=== PATIENT | male | born 1960 | race Caucasian/White ===

== ENCOUNTER 2025-03-24 00:15 | Inpatient (IN) | payer OTHER ==
[~2025-03-24] VITALS: Ht 170.2 cm; Wt 63.8 kg
[2025-03-24 02:04] LABS: PLATELET COUNT (AUTO) 245 K/uL (150-450); RED BLOOD CELL COUNT(AUTO) 4.52 MIL/uL (4.50-5.90); RED CELL DISTRIBUTION WIDTH 13.4 % (11.5-14.5); WHITE BLOOD COUNT (AUTO) 7.6 K/uL (4.5-11.0)
[2025-03-24 02:14] LABS: CALCIUM, TOTAL 9.5 mg/dL (8.8-10.5); CREATININE 0.80 mg/dL (0.60-1.30); GLOMERULAR FILTR. RATE CALC > 60 mL/min (>60); GLUCOSE,RANDOM 103 mg/dL (70-110); SODIUM SERUM 141 mmol/L (136-145); UREA NITROGEN, BLOOD 12 mg/dL (7-18)
[2025-03-24 02:43] LABS: LACTIC ACID 0.8 mmol/L (0.4-2.0)
[2025-03-24] MEDS: VANCOMYCIN 1GM/WATER(PEG/NADA) 200 ML IV ONE (03:23)
[2025-03-24] MEDS: SODIUM CHLORIDE 0.9% 1,000 ML IV ONE (03:23)
[2025-03-24 09:16] VITALS: BP 161/105; PULSE 83; RESP 18; TEMP 98.1; O2SAT 100
[2025-03-24] MEDS ORDERED: SODIUM CHLORIDE 3% 15 ML NEB SOLUTION NEB ONE (10:14)
[2025-03-24 10:40] VITALS: BP 134/84; RESP 16; TEMP 98; O2SAT 68
[2025-03-24] MEDS ORDERED: IBUPROFEN 600 MG TABLET PO PRN (10:45)
[2025-03-24] MEDS ORDERED: ALBUTEROL SULFATE 2.5 MG/0.5 ML NEB SOLUTION NEB PRN (10:45)
[2025-03-24] MEDS ORDERED: BISACODYL 10 MG RECTAL RECTAL SUPPOSITORY PR PRN (10:45)
[2025-03-24] MEDS ORDERED: IPRATROPIUM BROMIDE 0.5 MG/2.5 ML NEB SOLUTION NEB PRN (10:45)
[2025-03-24] MEDS ORDERED: MORPHINE SULFATE 2 MG/ML SYRINGE IVP PRN (10:45)
[2025-03-24] MEDS ORDERED: HYDROCODONE/ACETAMINOPHEN 5-325 MG TABLET PO PRN (10:45)
[2025-03-24] MEDS ORDERED: SODIUM CHLORIDE 0.9% 500 ML IV ONE (11:10)
[2025-03-24] MEDS: CefTRIAXone 1 GM/DEXTROSE 50 ML IV SCH (12:02)
[2025-03-24] MEDS: HEPARIN SODIUM,PORCINE 5,000 UNITS/ML VIAL SQ SCH (16:09)
[2025-03-24] MEDS: VANCOMYCIN 750 MG/WATER(PEG) 150 ML IV SCH (16:10)
[2025-03-24 20:20] VITALS: BP 134/81; PULSE 91; RESP 19; TEMP 98.1; O2SAT 100
[2025-03-24] MEDS: DOCUSATE SODIUM 100 MG CAPSULE PO SCH (21:00)
[2025-03-24 21:35] VITALS: BP 152/97; PULSE 99; RESP 18; TEMP 98.6; O2SAT 100
[2025-03-25] MEDS: ONDANSETRON HCL 4 MG/2 ML VIAL IVP PRN (02:49)
[2025-03-25 06:56] VITALS: BP 159/84; PULSE 71; RESP 19; TEMP 98.1; O2SAT 96
[2025-03-25 08:33] VITALS: BP 144/85; PULSE 88; RESP 18; TEMP 98.1; O2SAT 99
[2025-03-25] MEDS: PANTOPRAZOLE SODIUM 40 MG/VIAL IVP SCH (08:34)
[2025-03-25 12:17] VITALS: BP 137/79; RESP 18
[2025-03-25 12:59] VITALS: BP 137/79
[2025-03-25 16:47] VITALS: BP 135/84; PULSE 88; RESP 18; TEMP 98.1; O2SAT 99
[2025-03-25 16:59] LABS: PH,URINE DRUG SCREEN 6.5 (5.0-8.0)
[2025-03-25 17:06] LABS: ALCOHOL, URINE DRUG SCREEN NEGATIVE (NEGATIVE); AMPHET/METH SCREEN,URINE POSITIVE (NEGATIVE); BARBITURATE SCREEN, URINE NEGATIVE (NEGATIVE); CANNABINOID SCREEN,URINE NEGATIVE (NEGATIVE); COCAINE SCREEN,URINE NEGATIVE (NEGATIVE); METHADONE SCREEN, URINE NEGATIVE (NEGATIVE)
[2025-03-25 20:10] VITALS: BP 149/93; PULSE 80; RESP 18; TEMP 99.7; O2SAT 97
[2025-03-26] VITALS (7 sets, daily range): BP systolic 108–138; BP diastolic 72–83; PULSE 65–85; RESP 14–18; TEMP 99–100; O2SAT 95–100
[2025-03-26 07:20] LABS: CALCIUM, TOTAL 9.2 mg/dL (8.8-10.5); CREATININE 0.72 mg/dL (0.60-1.30); GLOMERULAR FILTR. RATE CALC > 60 mL/min (>60); GLUCOSE,RANDOM 106 mg/dL (70-110); SODIUM SERUM 140 mmol/L (136-145); UREA NITROGEN, BLOOD 17 mg/dL (7-18)
[2025-03-26] MEDS: MAGNESIUM HYDROXIDE SUSPENSION 30 ML UDCUP PO PRN (07:25)
[2025-03-26 11:20] LABS: PLATELET COUNT (AUTO) 282 K/uL (150-450); RED BLOOD CELL COUNT(AUTO) 4.88 MIL/uL (4.50-5.90); RED CELL DISTRIBUTION WIDTH 13.0 % (11.5-14.5); WHITE BLOOD COUNT (AUTO) 9.8 K/uL (4.5-11.0)
[2025-03-26 11:30] LABS: CREATININE 0.72 mg/dL (0.60-1.30); GLOMERULAR FILTR. RATE CALC > 60 mL/min (>60); GLUCOSE,RANDOM 106 mg/dL (70-110); SODIUM SERUM 140 mmol/L (136-145); UREA NITROGEN, BLOOD 17 mg/dL (7-18)
[2025-03-26 11:31] LABS: CALCIUM, TOTAL 9.2 mg/dL (8.8-10.5)
[2025-03-26 11:36] LABS: ASPARTATE AMINOTRANSFERASE 19 U/L (15-37); TOTAL PROTEIN, SERUM 8.2 g/dL (6.4-8.2)
[2025-03-26] MEDS: POTASSIUM CHLORIDE 20 MEQ ER TABLET PO ONE (12:22)
[2025-03-26 15:00] LABS: MTB PCR w/Rif. Resistance-SPUT NOT DETECTED (Not Detectd)
[2025-03-26] MEDS ORDERED: SODIUM CHLORIDE 3% 15 ML NEB SOLUTION NEB ONE (19:47)
[2025-03-26] MEDS: AMMONIUM LACTATE 12% 225 GM LOTION TP SCH (21:11)
[2025-03-26] MEDS: ZOLPIDEM TARTRATE 5 MG TABLET PO PRN (21:41)
[2025-03-27] VITALS (8 sets, daily range): BP systolic 122–151; BP diastolic 60–86; PULSE 61–92; RESP 18; TEMP 98.2–100; O2SAT 95–99
[2025-03-27] MEDS: ACETAMINOPHEN 325 MG TABLET PO PRN
[2025-03-27] MEDS ORDERED: SODIUM CHLORIDE 0.9% 500 ML IV ONE (04:41)
[2025-03-27] MEDS: MAG HYDROX/ALUMINUM HYD/SIMETH ES 30 ML SUSPENSION UDCUP PO PRN (04:58)
[2025-03-27] MEDS ORDERED: SODIUM CHLORIDE 3% 15 ML NEB SOLUTION NEB ONE (05:00)
[2025-03-27 06:48] LABS: CALCIUM, TOTAL 8.8 mg/dL (8.8-10.5); CREATININE 0.64 mg/dL (0.60-1.30); GLOMERULAR FILTR. RATE CALC > 60 mL/min (>60); GLUCOSE,RANDOM 121 mg/dL (70-110); SODIUM SERUM 140 mmol/L (136-145); UREA NITROGEN, BLOOD 17 mg/dL (7-18)
[2025-03-27 10:51] LABS: MTB PCR w/Rif. Resistance-SPUT NOT DETECTED (Not Detectd)
[2025-03-28] VITALS (7 sets, daily range): BP systolic 115–138; BP diastolic 62–86; PULSE 60–75; RESP 18–19; TEMP 97.6–99.5; O2SAT 94–99
[2025-03-28 07:17] LABS: PLATELET COUNT (AUTO) 217 K/uL (150-450); RED BLOOD CELL COUNT(AUTO) 4.68 MIL/uL (4.50-5.90); RED CELL DISTRIBUTION WIDTH 13.2 % (11.5-14.5); WHITE BLOOD COUNT (AUTO) 8.9 K/uL (4.5-11.0)
[2025-03-28 07:25] LABS: ASPARTATE AMINOTRANSFERASE 11 U/L (15-37); CALCIUM, TOTAL 8.1 mg/dL (8.8-10.5); CREATININE 0.87 mg/dL (0.60-1.30); GLOMERULAR FILTR. RATE CALC > 60 mL/min (>60); GLUCOSE,RANDOM 104 mg/dL (70-110); SODIUM SERUM 139 mmol/L (136-145); TOTAL PROTEIN, SERUM 6.7 g/dL (6.4-8.2); UREA NITROGEN, BLOOD 16 mg/dL (7-18)
[2025-03-29 04:35] VITALS: BP 127/66; PULSE 63; RESP 18; TEMP 98.2; O2SAT 99
[2025-03-29 06:56] LABS: CALCIUM, TOTAL 8.6 mg/dL (8.8-10.5); CREATININE 0.74 mg/dL (0.60-1.30); GLOMERULAR FILTR. RATE CALC > 60 mL/min (>60); GLUCOSE,RANDOM 106 mg/dL (70-110); SODIUM SERUM 140 mmol/L (136-145); UREA NITROGEN, BLOOD 14 mg/dL (7-18)
[2025-03-29 07:52] VITALS: BP 118/67; PULSE 63; RESP 18; TEMP 98.1; O2SAT 99
[2025-03-29 12:25] VITALS: BP 127/75; PULSE 67; RESP 18; TEMP 98.8; O2SAT 99
[2025-03-29 16:40] VITALS: BP 123/69; PULSE 76; RESP 18; TEMP 98.8; O2SAT 99
[2025-03-29 19:38] VITALS: BP 106/67; PULSE 73; RESP 18; TEMP 98.8; O2SAT 98
[2025-03-29 20:25] VITALS: BP 111/63; PULSE 88; RESP 18; TEMP 98.8; O2SAT 96
[2025-03-30 05:57] VITALS: BP 150/85; PULSE 75; RESP 18; TEMP 97.9; O2SAT 98
[2025-03-30 07:45] LABS: CALCIUM, TOTAL 8.5 mg/dL (8.8-10.5); CREATININE 0.72 mg/dL (0.60-1.30); GLOMERULAR FILTR. RATE CALC > 60 mL/min (>60); GLUCOSE,RANDOM 101 mg/dL (70-110); SODIUM SERUM 139 mmol/L (136-145); UREA NITROGEN, BLOOD 18 mg/dL (7-18)
[2025-03-30 08:34] VITALS: BP 156/89; PULSE 65; RESP 18; TEMP 97.7; O2SAT 99
[2025-03-30 11:07] LABS: QUANTIFERON+, Nil Value 0.01 IU/mL; QUANTIFERON+,Mitogen Value 4.17 IU/mL; QUANTIFERON+,TB1 Antigen Value 0.48 IU/mL; QUANTIFERON+,TB2 Antigen Value 0.50 IU/mL; QUANTIFERON, TB GOLD PLUS Positive (Negative)
[2025-03-30 20:18] VITALS: BP 107/67; PULSE 98; RESP 18; TEMP 99.5; O2SAT 98
[2025-03-30] MEDS ORDERED: SODIUM CHLORIDE 0.9% 500 ML IV ONE (23:10)
[2025-03-31 04:48] VITALS: BP 106/66; PULSE 85; RESP 18; TEMP 98.6; O2SAT 97
[2025-03-31 07:15] LABS: CALCIUM, TOTAL 8.8 mg/dL (8.8-10.5); CREATININE 0.75 mg/dL (0.60-1.30); GLOMERULAR FILTR. RATE CALC > 60 mL/min (>60); GLUCOSE,RANDOM 102 mg/dL (70-110); SODIUM SERUM 139 mmol/L (136-145); UREA NITROGEN, BLOOD 20 mg/dL (7-18)
[2025-03-31 20:30] VITALS: BP 105/69; PULSE 97; RESP 18; TEMP 99.3; O2SAT 98
[2025-04-01 04:45] VITALS: BP 139/85; PULSE 75; RESP 18; TEMP 97.7; O2SAT 99
[2025-04-01 06:45] LABS: CALCIUM, TOTAL 9.0 mg/dL (8.8-10.5); CREATININE 0.87 mg/dL (0.60-1.30); GLOMERULAR FILTR. RATE CALC > 60 mL/min (>60); GLUCOSE,RANDOM 107 mg/dL (70-110); SODIUM SERUM 138 mmol/L (136-145); UREA NITROGEN, BLOOD 20 mg/dL (7-18)
[2025-04-01 08:07] VITALS: BP 141/80; PULSE 70; RESP 18; TEMP 98.1; O2SAT 98
[2025-04-01 16:07] LABS: BLASTOMYCES AB BY ID Negative (Negative)
[2025-04-01 19:06] LABS: HISTOPLASMA CAP. YEAST AB(CF) Negative (Neg:<1:2); HISTOPLASMA MYCELIA AB (CF) Negative (Neg:<1:2)
[2025-04-01 21:05] VITALS: BP 102/66; PULSE 95; RESP 18; TEMP 99.1; O2SAT 98
[2025-04-02 05:22] VITALS: BP 115/66; PULSE 96; RESP 18; TEMP 98.8; O2SAT 97
[2025-04-02 08:26] VITALS: BP 118/68; PULSE 79; RESP 18; TEMP 98.4; O2SAT 97
[2025-04-02 17:39] VITALS: BP 111/76; PULSE 89; RESP 18; O2SAT 99
[2025-04-02 20:28] VITALS: BP 112/68; PULSE 100; RESP 18; TEMP 98.8; O2SAT 99
[2025-04-03 05:00] VITALS: BP 104/62; PULSE 77; RESP 18; TEMP 98.2; O2SAT 99
[2025-04-03 08:45] VITALS: BP 132/86; PULSE 77; RESP 20; TEMP 98.4; O2SAT 100
[2025-04-03 16:00] VITALS: BP 111/72; PULSE 81; RESP 18; TEMP 98.6; O2SAT 99
[2025-04-03 19:50] VITALS: BP 96/61; PULSE 93; RESP 18; TEMP 99.3; O2SAT 100
[2025-04-04 05:10] VITALS: BP 126/83; PULSE 82; RESP 18; TEMP 98.4; O2SAT 97
[2025-04-04 08:28] VITALS: BP 141/83; PULSE 85; RESP 18; TEMP 98.8; O2SAT 100
[2025-04-04 13:07] LABS: COCCIDIOIDES BY CF(UCDAVIS) Negative; COCCIDIOIDES IMMUNODIF-UCDAVIS Negative
[2025-04-04 19:39] VITALS: BP 108/72; PULSE 90; RESP 19; TEMP 99.1; O2SAT 99
[2025-04-05 03:35] VITALS: BP 106/68; PULSE 72; RESP 18; TEMP 97.5; O2SAT 99
[2025-04-05 08:07] LABS: U HISTOPLASMA GALACTOMANNAN AG Negative (<0.2 ng/mL)
[2025-04-05 08:12] VITALS: BP 122/85; PULSE 80; RESP 18; TEMP 97.7; O2SAT 97
[2025-04-05 21:59] VITALS: BP 108/68; PULSE 75; RESP 18; TEMP 97.8; O2SAT 99
[2025-04-06 05:36] VITALS: BP 104/72; PULSE 72; RESP 18; TEMP 98.2; O2SAT 99
[2025-04-06 08:26] VITALS: BP 109/73; PULSE 82; RESP 20; TEMP 98.1; O2SAT 97
[2025-04-06] MEDS: PANTOPRAZOLE SODIUM 40 MG DR TABLET PO SCH (08:30)
[2025-04-06 20:24] VITALS: BP 112/67; PULSE 88; RESP 18; TEMP 98.6; O2SAT 97
[2025-04-07 04:53] VITALS: BP 143/73; PULSE 66; RESP 19; TEMP 98.2; O2SAT 98
[2025-04-07 08:33] VITALS: BP 110/68; PULSE 82; RESP 18; TEMP 98.6; O2SAT 98
[2025-04-07 12:32] VITALS: BP 116/78; PULSE 82
[2025-04-07] MEDS: PYRAZINAMIDE 500 MG TABLET PO SCH (13:32)
[2025-04-07] MEDS: ETHAMBUTOL HCL 400 MG TABLET PO SCH (13:32)
[2025-04-07] MEDS: ISONIAZID 300 MG TABLET PO SCH (13:32)
[2025-04-07] MEDS: PYRIDOXINE HCL 50 MG TABLET PO SCH (13:32)
[2025-04-07 17:00] VITALS: BP 103/67; PULSE 97
[2025-04-07 19:10] VITALS: BP 116/71; PULSE 95; RESP 18; TEMP 98.9; O2SAT 97
[2025-04-07 20:10] VITALS: BP 114/73; PULSE 96; RESP 18; TEMP 98.8; O2SAT 97
[2025-04-08 05:18] VITALS: BP 121/78; PULSE 92; RESP 18; TEMP 98.1; O2SAT 98
[2025-04-08 08:00] VITALS: BP 128/78; PULSE 83; RESP 19; TEMP 98.4; O2SAT 99
[2025-04-08 10:31] LABS: PLATELET COUNT (AUTO) 267 K/uL (150-450); RED BLOOD CELL COUNT(AUTO) 4.65 MIL/uL (4.50-5.90); RED CELL DISTRIBUTION WIDTH 14.1 % (11.5-14.5); WHITE BLOOD COUNT (AUTO) 10.0 K/uL (4.5-11.0)
[2025-04-08 10:40] LABS: CALCIUM, TOTAL 9.0 mg/dL (8.8-10.5); CREATININE 0.78 mg/dL (0.60-1.30); GLOMERULAR FILTR. RATE CALC > 60 mL/min (>60); GLUCOSE,RANDOM 99 mg/dL (70-110); SODIUM SERUM 140 mmol/L (136-145); UREA NITROGEN, BLOOD 23 mg/dL (7-18)
[2025-04-08 10:44] LABS: ASPARTATE AMINOTRANSFERASE 14 U/L (15-37); TOTAL PROTEIN, SERUM 7.2 g/dL (6.4-8.2)
[2025-04-08 20:31] VITALS: BP 109/70; PULSE 98; RESP 18; TEMP 98.6; O2SAT 97
[2025-04-09 05:15] VITALS: BP 121/80; PULSE 80; RESP 18; TEMP 98.1; O2SAT 94
[2025-04-09 08:17] VITALS: BP 132/80; PULSE 75; RESP 18; TEMP 98.1; O2SAT 100
[2025-04-09 20:00] VITALS: BP 102/64; PULSE 100; RESP 18; TEMP 98.8; O2SAT 97
[2025-04-10 04:55] VITALS: BP 117/79; PULSE 78; RESP 18; TEMP 97.5; O2SAT 99
[2025-04-10 08:18] VITALS: BP 119/80; PULSE 80; RESP 18; TEMP 98.1; O2SAT 98
[2025-04-10 19:47] VITALS: BP 105/76; PULSE 83; RESP 18; TEMP 98.8; O2SAT 97
[2025-04-11 05:36] VITALS: BP 113/82; PULSE 81; RESP 19; TEMP 97.9; O2SAT 96
[2025-04-11 08:29] VITALS: BP 117/77; PULSE 86; RESP 18; TEMP 98.2; O2SAT 97
[2025-04-11 12:23] VITALS: BP 103/71; RESP 18; O2SAT 98
[2025-04-11] MEDS ORDERED: AMMO225L14 TP (12:29)
[2025-04-11] MEDS ORDERED: CLON0.1T2 PO (12:29)
[2025-04-11] MEDS ORDERED: DOCU-385 PO (12:30)
[2025-04-11] MEDS ORDERED: ISON300T90 PO (12:31)
[2025-04-11] MEDS ORDERED: ETHA400T25 PO (12:31)
[2025-04-11] MEDS ORDERED: PYRA500T33 PO (12:32)
[2025-04-11] MEDS ORDERED: PYRI-9 PO (12:33)
[2025-04-11 16:00] VITALS: BP 105/73; PULSE 102; RESP 18; TEMP 98.6; O2SAT 96
== END 2025-04-11 19:35 | DRG 896 ==
LOC: EMS 00:18 → EDH 06:13 → 6S 08:41
PROVIDERS: ADMIT Internal Medicine; ATTEND Internal Medicine
DX: F11.13 Opioid abuse with withdrawal (principal); J18.9 Pneumonia, unspecified organism; A15.9 Respiratory tuberculosis unspecified; R64 Cachexia; L03.90 Cellulitis, unspecified; N20.0 Calculus of kidney; K59.00 Constipation, unspecified; I10 Essential (primary) hypertension; F17.200 Nicotine dependence, unspecified, uncomplicated; E87.6 Hypokalemia; R91.8 Other nonspecific abnormal finding of lung field; Z78.9 Other specified health status; Z85.47 Personal history of malignant neoplasm of testis; Z90.79 Acquired absence of other genital organ(s); Z71.6 Tobacco abuse counseling
CPT/HCPCS: 71045; 71250; 74176; 80048; 80053; 80202; 80307; 83605; 85025; 85610; 86480; 86612; 86698; 87015; 87040; 87206; 87385; 87389; 87556; 94640; 96365; 96366; 96367; 97162; 97164; 97530; 99285; J0696; J1644; J2405; J2470; J7030; J7040; 36415-L1; 36415-TC